=== PATIENT | female | born 1965 | race Caucasian/White ===

== ENCOUNTER 2024-09-14 18:55 | Emergency (ER) | payer BC, SELFPAY ==
[2024-09-14 18:57] VITALS: BP 174/89
--- NOTE | 2024-09-14 19:32 | ED.MUSCINJ ---
HPI-Injury
General
Chief Complaint: Musculo-Skeletal Complaint
Time Seen by Provider: 09/14/24 19:16
History of Present Illness-Injury
Initial Injury comments:
Patient presents to the emergency department with right index finger swelling and bruising. She was gardening gloves on when one of the fingers and the glass broke. She took a fall off, finger to be turning purple. No pain. No itching. No
history of Raynaud's.
Past History
Past History
ED Past Medical History: Other (ra)
ED Past Surgical History: None
Social History
Tobacco: Former smoker
Alcohol: None
Personal:
Living: with family
Phy Exam
Physical Exam
Physical Exam:
General: No acute distress
Head: NCAT
Neck, Normal in appearance, no swelling
Respiratory: No Respiratory distress
Abdomen: No distension
Ext: Right index finger with purplish discoloration palmar surface of the finger. There is a small puncture site to the radial surface of the distal phalanx. There are some bruising in this area. Sensations intact throughout. Cap refills intact
throughout.
Neuro: CLAROS, AOx4
Psych: Normal affect
Skin: Normal color
Injury Course
Orders/Labs/Results
Orders:
Orders
09/14/24 19:31
Hand, Right 2 Views [CR Hand - Right 2 Views] Urgent
Comment:
Reason For Exam: swelling, bruising
*Critical Care Note
Total Time (30-74mins, 75-104mins- exclusive of procedures): Not Applicable
ED Attending Note
ED Attending Note
ED Attending Note:
Suspect small blood vessel injury from puncture wound from thorn on flower. No evidence of significant vascular compromise. Will xray to rule out alternate etiologies
likely stable for outpatient follow up
-
Portions of this chart may have been created with voice recognition software.� Occasional wrong word or��sound alike� substitutions may have occurred due to the inherent limitations of voice recognition software.
Discharge Plan
Departure
Patient Disposition: Home (Routine Discharge)
Date of Disposition: 09/14/24
Time of Disposition: 20:50
Patient with high blood pressure during this ER visit?: Yes
Discharge Problem:
Superficial bruising of finger
Instructions: Puncture Wound
Referrals:
Dwight Rodriguez MD [Family Provider, Internal Medicine]
Activity Restrictions/Additional Instructions:
we suspect this was a small puncture wound leading to some bleeding under the skin
apply ice to finger
keep elevated
follow up with primary doctor for recheck in the next few days
return to ER with new or worsening symptoms
Interventions
Interventions:
*Risk Screen - Suicide Last Done: 09/14/24 19:19
*General Assessment Last Done: 09/14/24 19:19
*Neglect/Abuse Screening Last Done: 09/14/24 19:19
*ED- Fall Risk Assessment Last Done: 09/14/24 19:19
*Nursing Disposition Last Done: 09/14/24 20:55
ED-Musculoskeletal Assessment Last Done: 09/14/24 19:19
Discharge Date and Time
Discharge Date/Time: 09/14/24 20:56
Print Language: ISRAELI
[2024-09-14 20:00] VITALS: BP 149/74
== END 2024-09-14 20:56 | disposition home or self-care (01) ==
LOC: EMR 18:55
PROVIDERS: EMERGENCY PHYSICIAN Emergency Medicine; FAMILY PHYSICIAN Internal Medicine
DX: S60.021A Contusion of right index finger without damage to nail, initial encounter (principal); W26.8XXA Contact with other sharp object(s), not elsewhere classified, initial encounter; Y93.H2 Activity, gardening and landscaping; Z87.891 Personal history of nicotine dependence
CPT/HCPCS: 99283; 73120